=== PATIENT | female | born 1990 | race Two or more races ===

== ENCOUNTER 2018-04-16 19:55 | Emergency (ER) | payer MEDICAID ==
[~2018-04-16] VITALS: Ht 162.6 cm; Wt 69.9 kg
[2018-04-16 20:23] VITALS: BP 120/90
== END 2018-04-17 01:30 | disposition left against medical advice (07) ==
LOC: ER 19:55
DX: H92.02 Otalgia, left ear (principal); Z53.21 Procedure and treatment not carried out due to patient leaving prior to being seen by health care provider